=== PATIENT | male | born 1985 | race Caucasian/White ===

== ENCOUNTER 2020-12-14 07:30 | Emergency (ER) | payer OTHER, SELFPAY ==
[2020-12-14 07:36] VITALS: BP 152/88; PULSE 104; RESP 23; TEMP 36.8; O2SAT 98
--- NOTE | 2020-12-14 07:40 | ED.DIZZY ---
HPI - Dizziness General Chief Complaint: Dizziness Stated Complaint: DIZZINESS,NAUSEA Time Seen by Provider: 12/14/20 07:34 Source: patient Mode of arrival: ambulatory Limitations: no limitations History of Present Illness HPI Narrative: A 35-year-old male presents to the emergency department with complaints of dizziness. Patient does state that this feels like a spinning. He notes that he feels like he spinning to the left. He states that it does get worse with movement and sudden movements of his head. He states that these episodes last for just a few moments and then seem to get better. He is also feeling nauseated with this as well. Patient denies any weakness, numbness or tingling anywhere. Related Data Allergies Allergy/AdvReac Type Severity Reaction Status Date / Time No Known Allergies Allergy Verified 12/14/20 07:40 Review of Systems Review of Systems: Narrative: CONSTITUTIONAL: Denies fever, chills, or sweats. EYES: Denies visual changes, redness, or discharge. ENT: Denies rhinorrhea, congestion, sore throat, or otalgia. CARDIOVASCULAR: Denies chest pain, palpitations, or edema. RESPIRATORY: Denies cough or dyspnea. GASTROINTESTINAL: Denies abdominal pain, nausea, vomiting, or diarrhea. GENITOURINARY: Denies dysuria or hematuria. SKIN: Denies rash or itching. MUSCULOSKELETAL: Denies back pain, joint pain, or myalgia. NEUROLOGIC: Denies headache, numbness, or weakness. Endorses dizziness. PSYCHIATRIC: Denies anxiety or depression. [facility] Family History Family History Father Hypertension Grandparent Malignant neoplasm of prostate Social History Social History Smoking status: Never smoker Alcohol intake: current Exam Narrative: Exam Narrative: GENERAL: Well-appearing, well-nourished, and in no acute distress. HEAD: Normocephalic, atraumatic. EYES: PERRLA and EOMI. ENT: Nares clear, no rhinorrhea or epistaxis. Mucous membranes moist. Oropharynx without tonsillar hypertrophy exudate or other lesions. Bilateral TMs pearly morrell nonbulging NECK: Supple. No adenopathy or masses. No carotid bruits or JVD CHEST: Clear to auscultation. No respiratory distress. No wheezes rales or rhonchi HEART: Regular rate and rhythm. No murmur heard. Normal peripheral pulses. ABDOMEN: Soft, nontender, nondistended, normal active bowel sounds. EXTREMITIES: Normal range of motion. No edema. SKIN: Warm, dry, no rash. NEURO: No focal deficits. Alert and oriented x3. Positive Amparo-Hallpike with leftward nystagmus. Negative HINTS exam. PSYCH: Normal mood and affect. Course Reevaluation(s) Reevaluation #1: Patient was reevaluated. After IV fluids and meclizine he states that he is feeling somewhat better. He notes that the dizzy spells are not as prevalent and have significantly improved. Patient still denies any neurological symptoms. At this time I do feel symptoms are likely related to BPPV. Patient will be treated symptomatically, discharged home and recommended to follow-up with his primary care physician. Time: 10:05 Vital Signs Vital signs: Vital Signs Temperature 36.8 C 12/14/20 07:36 Pulse Rate 104 H 12/14/20 07:36 Respiratory Rate 23 H 12/14/20 07:36 Blood Pressure 152/88 H 12/14/20 07:36 Pulse Oximetry 98 12/14/20 07:36 Temperature 36.8 C 12/14/20 07:36 Pulse Rate 76 12/14/20 09:47 Respiratory Rate 15 12/14/20 09:47 Blood Pressure 125/75 12/14/20 09:47 Pulse Oximetry 96 12/14/20 09:47 MDM - Dizziness MDM Narrative Medical decision making narrative: In brief this is a 35-year-old male who presents to the emergency department with complaints of a spinning-like sensation he described as dizziness. Patient noted was leftward. Examination was positive for leftward nystagmus on [place]-Hallpike. Patient's hints exam was negative. He had no other neurological deficits. I feel
[2020-12-14 07:46] LABS: Basophils Absolute Auto 0.1 K/mm3 (0.0-0.1); Basophils Percent Auto 0.9 % (0.2-1.2); Eosinophils Absolute Auto 0.2 K/mm3 (0-0.3); Eosinophils Percent Auto 2.1 % (0-4.4); Hematocrit 46.5 % (42.0-52.0); Hemoglobin 16.8 g/dL (14.0-18.0); Immature Granulocyte Absolute 0.04 K/mm3 (0.00-0.031); Immature Granulocyte Percent A 0.5 % (0-0.5); Lymphocytes Absolute Auto 2.88 K/mm3 (0.9-3.2); Mean Corpuscular HGB Conc 36.1 g/dl (32-36); Mean Corpuscular Hemoglobin 30.7 pg (26-34); Mean Platelet Volume 9.9 fl (7.4-10.4); Monocytes Absolute Auto 0.6 K/mm3 (0.1-0.6); Monocytes Percent Auto 7.7 % (2.6-8.5); Neutrophils Absolute Auto 3.9 K/mm3 (1.3-6.7); Neutrophils Percent Auto 50.8 % (45.5-73.1); Platelet Count Result 293 k/mm3 (150-375); Red Blood Count 5.47 M/mm3 (4.6-6.20); Red Cell Distribution Width 11.9 % (11.5-14.5); White Blood Count 7.6 K/mm3 (4.5-10.0)
[2020-12-14] MEDS: LACTATED RINGERS 1,000 ML 999 ML IV CONT (07:46)
[2020-12-14] MEDS: MECLIZINE HCL 25 MG TABLET PO (07:47)
[2020-12-14 07:58] LABS: Alanine Aminotransferase 61 U/L (4-50); Albumin Level 4.1 g/dL (3.5-5.1); Alkaline Phosphatase 34 U/L (38-126); Anion Gap 7 mmol/L (8-16); Aspartate Amino Transferase 37 U/L (17-59); Bilirubin,Total 0.6 mg/dL (0.2-1.3); Blood Urea Nitrogen 16 mg/dL (9-20); Calcium 9.1 mg/dL (8.4-10.2); Carbon Dioxide 27 mmol/L (22-30); Chloride 103 mmol/L (98-107); Estimated CRCL calculation 116 ml/min; Estimated Glomerular Filt Rate > 60; Glucose 117 mg/dL (75-110); Potassium 3.8 mmol/L (3.4-5.0); Sodium 137 mmol/L (137-145)
[2020-12-14 08:28] VITALS: BP 130/84; PULSE 96; RESP 18; O2SAT 100
[2020-12-14 08:41] LABS: Add Urine Microscopic? YES; Appearance Urine Clear (Clear); Bilirubin Urine Negative (Negative); Blood Urine Negative (Negative); Color Urine Yellow (Yellow); Glucose Urine UA Negative (Negative); Ketones Urine Negative (Negative); Leukocyte Esterase Ur Negative LEU/UL (Negative); Mucus Urine Heavy /lpf; Nitrate Urine Negative (Negative); Protein Urine 1+ mg/dL (Negative); RBC Urine 0-2 /hpf (0-2); Specific Grav Ur 1.029 (1.001-1.035); Urobilinogen Urine Negative mg/dL (<2.0); WBC Urine 0-3 /hpf
[2020-12-14 09:47] VITALS: BP 125/75; PULSE 76; RESP 15; O2SAT 96
[2020-12-14 10:21] VITALS: BP 126/80; PULSE 81; RESP 18; O2SAT 96
== END 2020-12-14 10:22 | disposition home or self-care (01) ==
PROVIDERS: Emergency Provider Emergency Medicine; Family Provider Family Medicine; PCP Family Medicine
DX: H81.12 Benign paroxysmal vertigo, left ear (principal)
CPT/HCPCS: 36415; 80053; 81001; 85025; 96360; 99283; A9270; J7120

== ENCOUNTER → 2021-03-07 10:39 | Outpatient (CLI) | payer OTHER, SELFPAY ==
--- NOTE | ~2021-03-07 | US_ITS ---
US abdomen complete EXAMINATION: US Abdomen Complete INDICATION: Abnormal liver function tests. Right upper quadrant pain. PROCEDURE: Realtime High Resolution abdomen ultrasound. COMPARISON: No prior studies for comparison FINDINGS: Gallbladder within normal limits. No gallstones, pericholecystic fluid, gallbladder wall t hickening or biliary dilatation. Common bile duct measures 5 mm. Liver echotexture is increased, consistent with fatty infiltration.. Visualized aspects of the pancre as are unremarkable. Pancreatic tail is obscured by bowel gas. Spleen is unremarkeable. Renal echote xture is within normal limits bilaterally without hydronephrosis, contour deforming mass or renal sto ne. Right kidney measures 11.3 cm. Left kidney measures 11.5 cm. Visualized aspects of the aorta and IVC are within normal limits. Portal vein is patent. No sonograph ic Santos's sign indicated by the technologist. IMPRESSION: 1: Hepatic steatosis. Reviewed, dictated and finalized at location A. IMPRESSION: 1: Hepatic steatosis.
== END ==
PROVIDERS: Visit Provider Physician Assistant
DX: K76.0 Fatty (change of) liver, not elsewhere classified (principal); R79.89 Other specified abnormal findings of blood chemistry
CPT/HCPCS: 76700

== ENCOUNTER 2021-04-26 01:20 | Emergency (ER) | payer OTHER, SELFPAY ==
[2021-04-26 01:21] VITALS: BP 141/90; PULSE 90; RESP 18; TEMP 36.7; O2SAT 98
--- NOTE | 2021-04-26 01:26 | ECG_ITS ---
Measurements Intervals [place] Rate: 91 P: 1 OR: 125 QRS: -9 QRSD: 105 T: 2 QT: 363 QTc: 447 Interpretive Statements SINUS RHYTHM POSSIBLE LEFT VENTRICULAR HYPERTROPHY BORDERLINE T WAVE ABNORMALITY- INFERIOR LEADS BASELINE ARTIFACT- I, II, III, AVR, AVL, AVF, V1 BORDERLINE ECG Electronically Signed On 04-26-2021 7:11:41 CDT by Oli Hassan D.O.
[2021-04-26 01:45] LABS: Basophils Absolute Auto 0.1 K/mm3 (0.0-0.1); Basophils Percent Auto 0.8 % (0.2-1.2); Eosinophils Absolute Auto 0.2 K/mm3 (0-0.3); Hematocrit 49.3 % (42.0-52.0); Hemoglobin 17.3 g/dL (14.0-18.0); Immature Granulocyte Absolute 0.04 K/mm3 (0.00-0.031); Immature Granulocyte Percent A 0.4 % (0-0.5); Lymphocytes Absolute Auto 3.19 K/mm3 (0.9-3.2); Lymphocytes Percent Auto 35.4 % (18.3-44.2); Mean Corpuscular HGB Conc 35.1 g/dl (32-36); Mean Corpuscular Volume 85.6 fl (80-100); Mean Platelet Volume 9.9 fl (7.4-10.4); Monocytes Absolute Auto 0.9 K/mm3 (0.1-0.6); Monocytes Percent Auto 9.9 % (2.6-8.5); Neutrophils Absolute Auto 4.6 K/mm3 (1.3-6.7); Neutrophils Percent Auto 51.5 % (45.5-73.1); Platelet Count Result 301 k/mm3 (150-375); Red Blood Count 5.76 M/mm3 (4.6-6.20); Red Cell Distribution Width 11.9 % (11.5-14.5)
[2021-04-26 01:46] LABS: Anion Gap 10 mmol/L (8-16); Blood Urea Nitrogen 19 mg/dL (9-20); Calcium 10.2 mg/dL (8.4-10.2); Carbon Dioxide 29 mmol/L (22-30); Chloride 102 mmol/L (98-107); Estimated CRCL calculation 116 ml/min; Estimated Glomerular Filt Rate > 60; Glucose 103 mg/dL (75-110); Potassium 3.5 mmol/L (3.4-5.0); Sodium 141 mmol/L (137-145)
[2021-04-26 01:49] LABS: Prothrombin Time 13.5 Seconds (11.1-14.7)
[2021-04-26 01:50] LABS: Partial Thromboplastin Time 26.4 SECONDS (22.3-36.8)
[2021-04-26 01:58] LABS: Troponin I < 0.012 ng/mL (0.000-0.034)
--- NOTE | 2021-04-26 02:06 | ED.CHESTPAIN ---
HPI - Chest Pain General Chief Complaint: Chest Pain Stated Complaint: cp Time Seen by Provider: 04/26/21 01:40 Source: patient Mode of arrival: EMS Limitations: no limitations History of Present Illness HPI narrative: 35-year-old with a history of hypertension, hemochromatosis here with sudden onset of chest pain while he was asleep. Patient states that he has a history of GERD, took some Tums pain did not subside he started hyperventilating and later called ambulance. By the time he came to the ER his symptoms have much subsided. He states that he might of panicked. He denies any shortness of breath, nausea or vomiting. complaint: chest pain Onset (ago): minute(s) (45) Timing of current episode: now resolved Onset: during rest Pain location: epigastric Pain radiation: none Severity: moderate Quality: sharp Relieving factors: antacids Exacerbating factors: nothing Risk Factors Coronary artery disease risk factors: none Thoracic aortic dissection risk factors: none Related Data Allergies Allergy/AdvReac Type Severity Reaction Status Date / Time No Known Allergies Allergy Verified 04/21/21 09:57 Review of Systems Review of Systems: All systems reviewed & are unremarkable except as noted in HPI and below Constitutional: Constitutional: Reports no additional constitutional complaints Eyes: Eyes: Reports no additional eye complaints Cardiovascular: Cardiovascular: Reports as per HPI Respiratory: Respiratory: Reports no additional respiratory complaints Gastrointestinal: Gastrointestinal: Reports as per HPI Musculoskeletal: Musculoskeletal: Reports no additional musculoskeletal complaints Integumentary/Breasts: Skin/Breast: Reports system reviewed and no additional complaints, except as docu PMFSH Family History Family History Father Hypertension Grandparent Malignant neoplasm of prostate Social History Social History Alcohol intake: current Exam Narrative: Exam Narrative: GENERAL: Well-appearing, well-nourished, and in no acute distress. HEAD: Normocephalic, atraumatic. EYES: PERRLA and EOMI. ENT: Nares clear, no rhinorrhea or epistaxis. Mucous membranes moist. NECK: Supple. CHEST: Clear to auscultation. No respiratory distress. HEART: Regular rate and rhythm. No murmur heard. Normal peripheral pulses. ABDOMEN: Soft, nontender, nondistended, normal active bowel sounds. EXTREMITIES: Normal range of motion. No edema. SKIN: Warm, dry, no rash. NEURO: No focal deficits. Alert and oriented x3. PSYCH: Normal mood and affect. Course Course Emergency Course: Patient upon arrival was asymptomatic. I did discuss his EKG and lab work with the patient. He states he feels fine to go home. Advised him to follow-up with his primary doctor. Vital Signs Vital signs: Vital Signs Temperature 36.7 C 04/26/21 01:21 Pulse Rate 90 04/26/21 01:21 Respiratory Rate 18 04/26/21 01:21 Blood Pressure 141/90 H 04/26/21 01:21 Pulse Oximetry 98 04/26/21 01:21 Temperature 36.7 C 04/26/21 01:21 Pulse Rate 90 04/26/21 01:21 Respiratory Rate 18 04/26/21 01:21 Blood Pressure 141/90 H 04/26/21 01:21 Pulse Oximetry 98 04/26/21 01:21 MDM - Chest Pain Lab Data Result diagrams: 04/26/21 01:28 04/26/21 01:28 Labs: Lab Results 04/26/21 04/26/21 04/26/21 Range/Units 01:28 01:28 01:28 WBC 9.0 (4.5-10.0) K/mm3 RBC 5.76 (4.6-6.20) M/mm3 Hgb 17.3 (14.0-18.0) g/dL Hct 49.3 (42.0-52.0) % MCV 85.6 (80-100) fl MCH 30.0 (26-34) pg MCHC 35.1 (32-36) g/dl RDW 11.9 (11.5-14.5) % Plt Count 301 (150-375) k/mm3 MPV 9.9 (7.4-10.4) fl Immature Gran % (Auto) 0.4 (0-0.5) % Neut % (Auto) 51.5 (45.5-73.1) % Lymph % (Auto) 35.4 (18.3-44.2) % [place] % (Auto) 9.9 H (2.6-8.5) % Eos % (Auto) 2.0 (
[2021-04-26 02:34] VITALS: BP 127/78; PULSE 78; RESP 16; TEMP 36.7; O2SAT 100
== END 2021-04-26 02:35 | disposition home or self-care (01) ==
PROVIDERS: Emergency Provider Family Medicine; PCP Family Medicine
DX: R07.89 Other chest pain (principal); I10 Essential (primary) hypertension; E83.119 Hemochromatosis, unspecified; K21.9 Gastro-esophageal reflux disease without esophagitis; R94.31 Abnormal electrocardiogram [ECG] [EKG]
CPT/HCPCS: 36415; 80048; 84484; 85025; 85610; 85730; 93005; 99284

== ENCOUNTER 2024-02-05 10:28 | Outpatient (CLI) | payer OTHER, SELFPAY ==
[2024-02-05 10:51] LABS: Basophils Absolute Auto 0.1 K/mm3 (0.0-0.1); Basophils Percent Auto 0.9 % (0.2-1.2); Eosinophils Absolute Auto 0.1 K/mm3 (0-0.3); Eosinophils Percent Auto 1.7 % (0-4.4); Hematocrit 46.1 % (42.0-52.0); Hemoglobin 16.4 g/dL (14.0-18.0); Immature Granulocyte Absolute 0.06 K/mm3 (0.00-0.031); Immature Granulocyte Percent A 0.9 % (0-0.5); Lymphocytes Absolute Auto 1.61 K/mm3 (0.9-3.2); Mean Corpuscular HGB Conc 35.6 g/dl (32-36); Mean Corpuscular Hemoglobin 30.3 pg (26-34); Mean Corpuscular Volume 85.1 fl (80-100); Mean Platelet Volume 9.6 fl (7.4-10.4); Monocytes Absolute Auto 0.7 K/mm3 (0.1-0.6); Neutrophils Absolute Auto 3.9 K/mm3 (1.3-6.7); Neutrophils Percent Auto 60.5 % (45.5-73.1); Platelet Count Result 326 k/mm3 (150-375); Red Blood Count 5.42 M/mm3 (4.6-6.20); Red Cell Distribution Width 12.6 % (11.5-14.5); White Blood Count 6.4 K/mm3 (4.5-10.0)
[2024-02-05 16:48] LABS: Iron 215 ug/dL (49-181)
[2024-02-05 16:58] LABS: Percent Iron Saturation 83 % (20-50)
[2024-02-05 17:13] LABS: Transferrin 216 mg/dL (206-381)
== END 2024-02-05 10:29 | disposition home or self-care (01) ==
PROVIDERS: Nurse Practitioner Family; PCP Family Medicine; Visit Provider Internal Medicine Hematology & Oncology
DX: E83.110 Hereditary hemochromatosis (principal)
CPT/HCPCS: 36415; 82728; 83540; 83550; 84466; 85025

== ENCOUNTER 2024-05-09 11:03 | Outpatient (CLI) | payer OTHER, SELFPAY ==
[2024-05-09 12:03] LABS: Basophils Absolute Auto 0.1 K/mm3 (0.0-0.1); Basophils Percent Auto 0.9 % (0.2-1.2); Eosinophils Absolute Auto 0.1 K/mm3 (0-0.3); Eosinophils Percent Auto 2.1 % (0-4.4); Hematocrit 42.6 % (42.0-52.0); Immature Granulocyte Absolute 0.01 K/mm3 (0.00-0.031); Immature Granulocyte Percent A 0.2 % (0-0.5); Lymphocytes Absolute Auto 1.78 K/mm3 (0.9-3.2); Lymphocytes Percent Auto 30.7 % (18.3-44.2); Mean Corpuscular HGB Conc 35.2 g/dl (32-36); Mean Corpuscular Hemoglobin 30.2 pg (26-34); Mean Corpuscular Volume 85.7 fl (80-100); Mean Platelet Volume 10.2 fl (7.4-10.4); Monocytes Absolute Auto 0.4 K/mm3 (0.1-0.6); Monocytes Percent Auto 7.6 % (2.6-8.5); Neutrophils Absolute Auto 3.4 K/mm3 (1.3-6.7); Neutrophils Percent Auto 58.5 % (45.5-73.1); Platelet Count Result 303 k/mm3 (150-375); Red Blood Count 4.97 M/mm3 (4.6-6.20); Red Cell Distribution Width 11.7 % (11.5-14.5); White Blood Count 5.8 K/mm3 (4.5-10.0)
[2024-05-09 13:47] LABS: Iron 116 ug/dL (49-181)
[2024-05-09 13:48] LABS: Transferrin 190 mg/dL (206-381)
[2024-05-09 14:08] LABS: Percent Iron Saturation 45 % (20-50)
== END 2024-05-09 11:04 | disposition home or self-care (01) ==
LOC: ANHLAB 11:05
PROVIDERS: Nurse Practitioner Family; PCP Nurse Practitioner Family; Visit Provider Internal Medicine Hematology & Oncology
DX: E83.110 Hereditary hemochromatosis (principal)
CPT/HCPCS: 36415; 82728; 83540; 83550; 84466; 85025

== ENCOUNTER 2025-04-20 08:32 | Outpatient (CLI) | payer OTHER, SELFPAY ==
--- NOTE | ~2025-04-20 | XR_ITS ---
XR shoulder LT min 2V 04/20/2025 08:43 Indication: Left shoulder pain Procedure: 4 views left shoulder Comparison: No prior studies for comparison. Findings: Severe glenohumeral joint osteoarthritis. There is evidence of calcific tendinopathy. No ac lakshmi fracture or traumatic malalignment. No soft tissue abnormality. No foreign bodies. Impression: 1: Severe left glenohumeral joint osteoarthritis. Reviewed, dictated and finalized at location A. Impression: 1: Severe left glenohumeral joint osteoarthritis.
== END 2025-04-20 08:33 | disposition home or self-care (01) ==
LOC: GOSHIMG 08:32
PROVIDERS: PCP Nurse Practitioner Family; Visit Provider Nurse Practitioner Family
DX: M19.012 Primary osteoarthritis, left shoulder (principal)
CPT/HCPCS: 73030